=== PATIENT | male | born 1975 | race Caucasian/White ===

== ENCOUNTER → 2021-11-16 | Outpatient (CLI) | payer OTHER, SELFPAY ==
[2021-11-16 12:36] LABS: Absolute Lymphocyte Count 1.27 X10^3/uL (0.83-4.51); Absolute Neutrophil Count 3.4 X10^3/uL (2.0-7.7); Basophil# 0.02 X10^3/uL; Basophil% 0.4 % (0-1); Eosinophil# 0.06 X10^3/uL; Eosinophils% 1.2 % (0-5); Hematocrit 47.1 % (40-54); Hemoglobin 16.1 g/dL (13.0-16.5); Lymphocyte # 1.27 X10^3/ul (0.83-4.51); Lymphocyte % 24.7 % (19-41); Mean Corp Hgb Conc 34.2 g/dL (32-36); Mean Corpuscular Hgb 31.6 pg (27.0-32.0); Mean Corpuscular Volume 92.5 fL (80-94); Mean Platelet Vol. 11.5 fl (6.2-12.0); Monocyte# 0.43 X10^3/uL; Monocyte% 8.3 % (0-10); NRBC Flagged by Analyzer 0 % (0-5); Neutrophil # 3.36 X10^3/uL (2.7-7.7); Neutrophil % 65.2 % (47-70); Platelet Count 179 K/mm3 (150-450); RBC Distribution Width CV 12.8 % (11.6-14.6); RBC Distribution Width SD 44.2 fl (35.1-43.9); Red Blood Count 5.09 M/mm3 (4.6-6.2); White Blood Count 5.2 K/mm3 (4.4-11.0)
[2021-11-16 12:49] LABS: ALB/GLOB Ratio 1.1 RATIO (0.9-2.4); AST(SGOT) 15 U/L (15-37); Alanine Aminotransfer ALT/SGPT 23 U/L (16-61); Albumin, Serum 3.9 g/dL (3.2-5.0); Alkaline Phosphatase 58 U/L (45-117); Anion Gap 4 (5-15); BUN 21 mg/dL (7-18); BUN/Creat Ratio 17.9 RATIO (10-20); Calcium,Total 9.2 mg/dL (8.5-10.1); Chloride 106 mmol/L (98-107); Cholesterol 152 mg/dL (200); Creatinine, Serum 1.17 mg/dL (0.70-1.30); EST Glomerular Filtration Rate 71 mL/min (>60); Est Glom Filt Rate - Afr Amer 86 mL/min (>60); Globulin 3.5 g/dL (2.2-4.2); Glucose 91 mg/dL (74-106); High Density Lipoprotein 45 mg/dL; Potassium 4.3 mmol/L (3.5-5.1); Protein, Total 7.4 g/dL (6.4-8.2); Sodium Level 139 mmol/L (136-145); Triglycerides 53 mg/dL; Very Low Density Lipoprotein 11 mg/dL (5-40)
== END | disposition home or self-care (01) ==
LOC: BIMLAB 10:44
PROVIDERS: PCP Internal Medicine; Referring Provider Internal Medicine; Visit Provider Internal Medicine
DX: Z00.00 Encounter for general adult medical examination without abnormal findings (principal)
CPT/HCPCS: 36415; 80053; 80061; 85025

== ENCOUNTER 2022-05-20 05:26 | Day surgery (SDC) | payer OTHER, SELFPAY ==
[2022-05-20 05:55] VITALS: BP 124/93; PULSE 85; RESP 12; TEMP 35.9; O2SAT 99; BMI 24.2
[2022-05-20] MEDS: Lactated Ringers 1,000 ML 15 ML IV (06:06)
--- NOTE | 2022-05-20 06:30 | EGD_PTH ---
PATIENT: ADEEL TRIPLETT LOC: EN U#:[id number] AGE/SX: 46/M ROOM: RE05/20/[address]: Dr. Dung Garcia DO : 1975 BED: DIS: 05/20/2022 SPEC #: [id number] RECD: 05/20/22 12:17 STATUS: MITRA VA #: [id number] HARRIS: 05/20/22 06:[address]: Dung Garcia DEPT: SURGICAL PATHOLOGY RECD BY: Kaur Ramos ENTERED: 05/20/22 12:40 SP TYPE: EGD BIOPSY RADHA DR: Dr. Bo Campo MD Tissues: Esophagus, NOS Procedures: Special Stain Group II Surgery Specimen Level IV Alcian Blue/PAS (control) HEADER OPERATION: Colonoscopy, EGD ([facility]), biopsy PRE-OP DIAGNOSIS: GERD TISSUE SUBMITTED: Distal esophagus biopsy MICROSCOPIC DIAGNOSIS Distal esophagus, biopsy: Fragments of gastroesophageal mucosa with moderate chronic inflammation. Intestinal metaplasia (goblet cell metaplasia) not identified. See comment. AISHA:lucretia 05/21/2022 COMMENT Alcian blue/PAS stain with matched control is used in the evaluation of the specimen. MICROSCOPIC DESCRIPTION Slides are reviewed. GROSS DESCRIPTION Received in fixative is one container labeled with the patient's name and designated distal esophagus biopsy. The specimen consists of multiple irregular fragments of light strong soft tissue that in aggregate measure 1.0 x 0.3 x 0.1 cm. The specimen is totally submitted in one cassette. / AISHA:lucretia 05/20/2022 TC:3 CPT: 49424, 01325
--- NOTE | 2022-05-20 06:32 | PCM.HP.BLA ---
History and Physical Date of Admission: 05/20/22 46 M who presents to the office today to establish with gastroenterology for GERD and screening colonoscopy. Hx of heartburn that was intermittent, caused by tomato sauce and chocolate, typically relieved with a 2 wk course of PPI. Then in 2019 he developed heartburn that didn't respond to PPI; he had to drastically limit his diet and then lost 30 lbs. EGD, per pt report, revealed normal esophagus but some abnormal cells in the stomach; repeat EGD was recommended in a year however he was unable to get that due to the COVID pandemic.? His heartburn was controlled on lansoprazole 30 mg, initially 2 a day, then decreased to once a day which he remains on now.? He occasionally gets acid reflux, but typically caused by triggering foods.? He occasionally feels a lump in his throat but food has never been stuck.? He does not have nausea, vomiting, early satiety.? Bowels move well especially now that he eats oatmeal every day.? No diarrhea or constipation.? No melena or hematochezia.? He may occasionally have a twinge of abdominal pain that lasts for 30 seconds, this could be epigastric or right lower quadrant or left lower quadrant, never longer lasting or severe.? He notes heartburn is better since discontinuing Abigail. ROS Const Constitutional: No fatigue ENT ENT: No difficulty swallowing Gastro GI: Positive for abdominal pain and heartburn; No belching, bloating, change in bowel habits, change in stool character, coffee ground emesis, constipation, cramping, diarrhea, difficulty swallowing, feeling full early, excessive flatus, incontinent of stools, Vomiting blood/hematemesis, Blood in stool, loose stools, Black,tarry stools, nausea/dyspepsia, pain with swallowing, vomiting or other Musc Musculoskeletal: Positive for back pain, numbness and tingling; No joint pain Skin Skin: No yellowing of the eye or itchy eyes Neuro Neurology: Positive for numbness and tingling Psych Psychiatric: Positive for anxiety and No depression Endo Endocrine: No fatigue Aller/Imm Allergy/Immunologic: No itchy eyes Leo/Lymp Hematologic/Lymphatic: No easy bleeding or easy bruising Exam Const General: cooperative, healthy appearing and comfortable Nutritional Appearance: average body habitus Orientation: alert, awake and oriented x3 HENMT Head: normal to inspection Eyes Sclera: sclerae normal Resp Effort & Inspection: normal respiratory effort GI Inspection: normal to inspection Skin General: no rashes or lesions noted Neuro Gait: normal gait Psych Mood: euthymic mood Quality Reporting Tobacco Screening ([facility] 138) Smoking Status: Never smoker Assessment and Plan Assessment and Plan (1) GERD (gastroesophageal reflux disease): ?Status:?Acute ?Plan: 46 yr old male with chronic heartburn, mostly controlled with lansoprazole 30 mg daily. EGD in 2019 revealed some abnormal cells in the stomach per pt report (we will request EGD and path report). We will get EGD to eval for esophagitis, Chin's, hiatal hernia, gastritis, PUD, gastric lesions, duodenitis. He will be scheduled for screening colonoscopy. I have examined the patient and the H&P has been reviewed. There are no clinical changes since date of exam.
[2022-05-20 07:00] VITALS: BP 124/93; BP 98/74; PULSE 72; RESP 18; TEMP 36.2; O2SAT 99
--- NOTE | 2022-05-20 07:01 | OP.EGD_ITS ---
Patient Name: Ronal Still Procedure Date: 05/20/2022 6:13 AM Date of : 1975 Age: 46 Procedure: Upper GI endoscopy Indications: Suspected esophageal reflux Providers: Dung Garcia DO Referring MD: Dung Garcia DO Medicines: Monitored Anesthesia Care Patient Profile: This is a 46 year old male. Refer to note in patient chart for documentation of history and physical. Patient has symptoms of chronic heartburn. Complications: No immediate complications. Procedure: Pre-Anesthesia Assessment: - Prior to the procedure, a History and Physical was performed, and patient medications and allergies were reviewed. The patient is competent. The risks and benefits of the procedure and the sedation options and risks were discussed with the patient. All questions were answered and informed consent was obtained. Patient identification and proposed procedure were verified by the physician in the pre-procedure area. Mental Status Examination: alert and oriented. Airway Examination: normal oropharyngeal airway and neck mobility. CV Examination: normal. Prophylactic Antibiotics: The patient does not require prophylactic antibiotics. Prior Anticoagulants: The patient has taken no previous anticoagulant or antiplatelet agents. After reviewing the risks and benefits, the patient was deemed in satisfactory condition to undergo the procedure. The anesthesia plan was to use monitored anesthesia care (MAC). Immediately prior to administration of medications, the patient was re-assessed for adequacy to receive sedatives. The heart rate, respiratory rate, oxygen saturations, blood pressure, adequacy of pulmonary ventilation, and response to care were monitored throughout the procedure. The physical status of the patient was re-assessed after the procedure. After obtaining informed consent, the endoscope was passed under direct vision. Throughout the procedure, the patient's blood pressure, pulse, and oxygen saturations were monitored continuously. The Colonoscope was introduced through the mouth, and advanced to the second part of duodenum. The upper GI endoscopy was accomplished without difficulty. The patient tolerated the procedure well. Scope In: 6:38:18 AM Scope Out: 6:42:07 AM Total Procedure Duration Time 0 hours 3 minutes 49 seconds Findings: The Z-line was irregular and was found 40 cm from the incisors. Biopsies were taken with a cold forceps for histology. Verification of patient identification for the specimen was done. Estimated blood loss was minimal. The upper third of the esophagus, middle third of the esophagus and lower third of the esophagus were normal. The entire examined stomach was normal. The cardia and gastric fundus were normal on retroflexion. The second portion of the duodenum was normal. Impression: - Z-line irregular, 40 cm from the incisors. Biopsied. - Normal upper third of esophagus, middle third of esophagus and lower third of esophagus. - Normal stomach. - Normal second portion of the duodenum. Recommendation: - Discharge patient to home. - Resume previous diet. - Continue present medications. - Await pathology results. Procedure Code(s): --- Professional --- 72573, Esophagogastroduodenoscopy, flexible, transoral; with biopsy, single or multiple CPT copyright 2017 [employer]. All rights reserved. The codes documented in this report are preliminary and upon sql developer review may be revised to meet current compliance requirements. Dung Garcia DO 05/20/2022 7:00:25 AM This report has been signed electronically. Number of Addenda: 0 Note Initiated On: 05/20/2022 6:13 AM
--- NOTE | 2022-05-20 07:01 | OP.CCLET_ITS ---
05/20/2022 Bo Campo MD [address] [place] [address] [place] [address] Re : Upper GI endoscopy procedure for Ronal Cheko Dear Dr. Campo This procedure was performed on April. My impressions and recommendations are as follows: Impressions : - Z-line irregular, 40 cm from the incisors. Biopsied. - Normal upper third of esophagus, middle third of esophagus and lower third of esophagus. - Normal stomach. - Normal second portion of the duodenum. Recommendations : - Discharge patient to home. - Resume previous diet. - Continue present medications. - Await pathology results. My findings are described in the full procedure note, which is enclosed. If I can be of further assistance, please feel free to contact me at . Sincerely, Dung Garcia, 05/20/2022 7:00:25 AM This report has been signed electronically.
[2022-05-20 07:05] VITALS: BP 109/81; BP 124/93; PULSE 93; RESP 14; TEMP 27.7; O2SAT 98
--- NOTE | 2022-05-20 07:08 | OP.CCLET_ITS ---
05/20/2022 Bo Campo MD [address] [place] [address] [place] [address] Re : Colonoscopy procedure for Ronal Still Dear Dr. Campo This procedure was performed on April. My impressions and recommendations are as follows: Impressions : - The entire examined colon is normal. - The examination was otherwise normal on direct and retroflexion views. - No specimens collected. Recommendations : - Discharge patient to home. - Resume previous diet. - Continue present medications. - Repeat colonoscopy in 10 years for screening purposes. My findings are described in the full procedure note, which is enclosed. If I can be of further assistance, please feel free to contact me at . Sincerely, Dung Garcia, 05/20/2022 7:07:14 AM This report has been signed electronically.
--- NOTE | 2022-05-20 07:08 | OP.COLON_ITS ---
Patient Name: Ronal Still Procedure Date: 05/20/2022 6:42 AM Date of : 1975 Age: 46 Procedure: Colonoscopy Indications: Screening for colorectal malignant neoplasm Providers: Dung Garcia DO Referring MD: Dung Garcia DO Medicines: Monitored Anesthesia Care Patient Profile: This is a 46 year old male. Refer to note in patient chart for documentation of history and physical. Patient has symptoms of chronic heartburn. Last Colonoscopy: none. The patient's first colonoscopy is today. Complications: No immediate complications. Procedure: Pre-Anesthesia Assessment: - Prior to the procedure, a History and Physical was performed, and patient medications and allergies were reviewed. The patient is competent. The risks and benefits of the procedure and the sedation options and risks were discussed with the patient. All questions were answered and informed consent was obtained. Patient identification and proposed procedure were verified by the physician in the pre-procedure area. Mental Status Examination: alert and oriented. Airway Examination: normal oropharyngeal airway and neck mobility. CV Examination: normal. Prophylactic Antibiotics: The patient does not require prophylactic antibiotics. Prior Anticoagulants: The patient has taken no previous anticoagulant or antiplatelet agents. After reviewing the risks and benefits, the patient was deemed in satisfactory condition to undergo the procedure. The anesthesia plan was to use monitored anesthesia care (MAC). Immediately prior to administration of medications, the patient was re-assessed for adequacy to receive sedatives. The heart rate, respiratory rate, oxygen saturations, blood pressure, adequacy of pulmonary ventilation, and response to care were monitored throughout the procedure. The physical status of the patient was re-assessed after the procedure. After I obtained informed consent, the scope was passed under direct vision. Throughout the procedure, the patient's blood pressure, pulse, and oxygen saturations were monitored continuously. The Colonoscope was introduced through the anus and advanced to the cecum, identified by appendiceal orifice and ileocecal valve. The colonoscopy was performed without difficulty. The patient tolerated the procedure well. The quality of the bowel preparation was good. Scope In: 6:44:16 AM Scope Withdrawal Time 0 hours 9 minutes 6 seconds Scope Out: 6:55:22 AM Total Procedure Duration Time 0 hours 11 minutes 6 seconds Findings: The perianal and digital rectal examinations were normal. The colon (entire examined portion) appeared normal. The exam was otherwise without abnormality on direct and retroflexion views. Impression: - The entire examined colon is normal. - The examination was otherwise normal on direct and retroflexion views. - No specimens collected. Recommendation: - Discharge patient to home. - Resume previous diet. - Continue present medications. - Repeat colonoscopy in 10 years for screening purposes. Procedure Code(s): --- Professional --- G0121, Colorectal cancer screening; colonoscopy on individual not meeting criteria for high risk CPT copyright 2017 [employer] [place] [employer]. All rights reserved. The codes documented in this report are preliminary and upon information systems architect review may be revised to meet current compliance requirements. Dung Garcia DO 05/20/2022 7:07:14 AM This report has been signed electronically. Number of Addenda: 0 Note Initiated On: 05/20/2022 6:42 AM
[2022-05-20 07:10] VITALS: BP 109/81; BP 124/93; PULSE 74; RESP 18; O2SAT 100
[2022-05-20 07:15] VITALS: BP 112/86; BP 124/93; PULSE 68; RESP 12; TEMP 36.4; O2SAT 98
[2022-05-20 07:34] VITALS: BP 124/93
== END 2022-05-20 08:57 | disposition home or self-care (01) ==
LOC: EN 05:29 → AC 05:30
PROVIDERS: PCP Internal Medicine; Referring Provider Internal Medicine; Visit Provider Internal Medicine Gastroenterology
PROC: 0DJD8ZZ Inspection of Lower Intestinal Tract, Via Natural or Artificial Opening Endoscopic (ICD-10-PCS; CPT 45378; principal; 2022-05-20 06:25)
DX: Z12.11 Encounter for screening for malignant neoplasm of colon (principal); K21.00 Gastro-esophageal reflux disease with esophagitis, without bleeding
CPT/HCPCS: 45378; 43239; 88305; 88313; J7120; J2405

== ENCOUNTER → 2022-08-19 | Outpatient (CLI) | payer OTHER, SELFPAY ==
--- NOTE | 2022-08-19 15:25 | RAD_ITS ---
INDICATION: left shoulder pain EXAMINATION/TECHNIQUE: X-RAY - LEFT XR Shoulder Min 2 Views 4 VIEWS COMPARISON: FINDINGS: SOFT TISSUES: No soft tissue swelling or gas. There is a calcified granuloma in the left lung apex measures 2 cm in diameter. BONES/JOINTS: No acute fracture or subluxation.. Normal alignment. Preservation of the joint space. No sclerotic or destructive changes observed. RAD/Shoulder min 2 Views IMPRESSION: Negative. Electronically Signed: Rhina Gooden MD at 7:03 EDT ,
== END | disposition home or self-care (01) ==
LOC: MTRAD 15:25
PROVIDERS: PCP Internal Medicine; Referring Provider Nurse Practitioner Family; Visit Provider Nurse Practitioner Family
DX: M25.512 Pain in left shoulder (principal)
CPT/HCPCS: 73030

== ENCOUNTER 2022-11-10 11:00 | Outpatient (RCR) | payer OTHER, SELFPAY ==
--- NOTE | 2022-09-10 14:21 | HP.PTEVAL ---
Patient's Visit Information ADEEL TRIPLETT is a 46 year old M referred to Physical Therapy by Dr. Dominic Busby, with a diagnosis of OTHER CERVICAL DISC DEGENERATION ,OTHER ENTHESOPTHIES. Date of Evaluation: 09/10/22 Physical Therapist: Jason Reyes, PT, Cert MDT, OCS - Visit Plan Frequency: 1-2x /Week Duration: 4 Weeks Plan: PT INTERVETIONS POSTURAL EX'S ,RTC/SCAPULAR STRENGTHNEING AND ACTIVITY MODIFICATION WITH WEIGHT TRAINING - Subjective This 46 y/o male presents to physical therapy with right shoulder pain. Patient has had shoulder pain since June workout 2xweek noticed shoulder pain. Patient seen x-ray- shoulder and cervical spine mild DDD, Dr Busby did cortisone injection helped. Patient also was provided with Celebrex. Location of pain global shoulder lateral deltoid and initially had some scapular pain. Aggravating factors reaching across body ,lifting [place],. Alleviating factors Celebrex and injection. Denies paresthesia/tingling. Sleeping good. Patient pain causes affects ADLS and function. Patient goals to have no pain. Patient has h/o tears RTC 10 years ago. SOCIAL: . VOCATION: [employer] - Pain Left Shoulder Pain Intensity (Out of 10): 0 - Objective POSTURE: mild forward posture. PALAPTION: unremarkable. NEURO: intact. AROM: shoulder flexion 160 degrees ,abduction 160 degrees ,ER 90 ,IR T1. MMT LEFT SHOUDER: infraspinatus 18.3 ,supraspinatus 16.6 ,subscapularis 23.3 ,deltoid 15.2( weakness). scapular MT 4-/5 ,lower traps 4-/5. CERVICAL ROM: flexion/extension/rotation/lateral flexion WFL - Special Tests C/S Radiculapathy - Left Upper limb tension test: Negative C/S Radiculapathy - Right Upper limb tension test: Negative C/S Radiculapathy - Left Spurlings: Negative C/S Radiculapathy - Right Spurlings: Negative C/S Radiculapathy - Left Cervical distraction: Negative C/S Radiculapathy - Right Cervical distraction: Negative C/S Radiculapathy - Left Relief test: Negative Sharp Denisha: Negative Vertebral Artery Test: Negative Alar Ligament Test: Negative L Shoulder Lift Off Test - Subscapular Tear: Negative L Shoulder Drop Sign - IS Test: Negative L Shoulder Empty Can - SS: Negative L Shoulder Belly Press - SupScap: Negative L Shoulder Neer - Impingement: Negative L Shoulder Cortes Solomon - Impingement: Negative L Shoulder Speeds Test - Labrum/Biceps: Negative - Balance/Special Test Scores Quick DASH Score: 22.7250 - Goals Goal 1:: I with HEP shoulder Goal Time Frame: 2-4 Weeks Goal 2:: Patient to demonstrate 70% improvement with less pain and improved function Goal Time Frame: 2-4 Weeks Goal 3:: Patient to improve peak force RTC and deltoid by 5-10 to improve function Goal Time Frame: 4-6 Weeks Goal 4:: Patient to improve quick dash by 5 points or > to improve function Goal Time Frame: 2-4 Weeks Goal 5:: Patient to improve ability to workout without pain Goal Time Frame: 2-4 Weeks - Rehabilitation Potential Physical Therapy Diagnosis: This patient has right shoulder weakness from tendonitis along with h/o RTC tear affects ADL's and housework tasks above 90 degrees and lifting thus benefit from skilled PT Rehabilitation Potential: Good - Anticipated Interventions Patient/Client Instruction: Educate patient on: Condition, Plan of Care For the Purpose of:: To decrease pain, To increase ROM, To improve muscle performance and motor function, To improve ability to perform ADL's, To increase tolerance to activity/condition/position, To improve ability of physical actions for home/community/work/leisure, To improve health of tissue, To decrease soft tissue restriction, To increase flexibility/ROM, To prevent re-injury Therapeutic Exercise to Include: Strength training, Body mechanics, Postural training, Flexibilty training, Passive ROM, Active ROM For the Purpose of:: To decrease pain, To increase ROM, To improve health of tissue, To decrease soft tissue restriction, To increase flexibility/ROM Thank you for the opportunity to evaluate your patient. For Medicare and Medicare HMO plans, please review the plan of care and approve it. It will need to be FAXED BACK to us at [phone] for Medicare purposes. For Medicare only, by signing this I certify the plan of care. Please let me know if there are questions or concerns regarding this plan of care. Physician Signature: Date:
--- NOTE | 2022-11-10 12:00 | HP.PTDCSUM ---
Discharge Summary D/C summary: It has been my pleasure to treat ADEEL TRIPLETT referred by Dr. Dominic Busby DO, with the diagnosis of OTHER CERVICAL DISC DEGENERATION ,OTHER ENTHESOPTHIES for a total of 6 visit(s). Discharge Date: Please see the following information for a summary of their discharge status. Subjective Subjective: Doing well ..ready for d/c Pain Left Shoulder: Pain Intensity (Out of 10): 0 Overall Improvement % Improvement: 90 Objective Objective/Function: POSTURE: mild forward posture. PALAPTION: unremarkable. NEURO: intact. AROM: shoulder flexion 160 degrees ,abduction 160 degrees ,ER 90 ,IR T1. MMT LEFT SHOUDER: infraspinatus 26.8 ,supraspinatus 25.9 ,subscapularis 30.0 ,deltoid 36.3( weakness). scapular MT 4-/5 ,lower traps 4-/5. CERVICAL ROM: flexion/extension/rotation/lateral flexion WFL Goals Goal 1:: I with HEP shoulder Goal Progress: Goal Met Goal 2:: Patient to demonstrate 70% improvement with less pain and improved function Goal Progress: Goal Met Goal 3:: Patient to improve peak force RTC and deltoid by 5-10 to improve function Goal Progress: Goal Met Goal 4:: Patient to improve quick dash by 5 points or > to improve function Goal Progress: Goal Met Goal 5:: Patient to improve ability to workout without pain Goal Progress: Goal Met Plan Plan: d/c to HEP D/C Information d/c sentence: If there are questions or concerns regarding this patient's physical therapy, please feel free to call me at [phone]. Thank you for the referral of this patient. Sincerely, Jason Reyes, PT, Cert MDT, OCS Balance/Gait/Functional tests Balance/Special Test Scores Quick DASH Score: 0
== END 2022-11-10 19:00 | disposition home or self-care (01) ==
LOC: PT 11:00
PROVIDERS: PCP Internal Medicine; Referring Provider Orthopaedic Surgery; Visit Provider Orthopaedic Surgery
DX: M50.30 Other cervical disc degeneration, unspecified cervical region (principal); M77.8 Other enthesopathies, not elsewhere classified
CPT/HCPCS: 97014; 97110; 97161; G0283